=== PATIENT | male | born 1955 | race Asian ===

== ENCOUNTER 2018-10-25 12:14 | Emergency (ER) | payer MEDICAID ==
[~2018-10-25] VITALS: Ht 154.9 cm; Wt 59.0 kg
[2018-10-25 13:16] VITALS: BP 126/66
[2018-10-25] MEDS ORDERED: ORPH100T PO (13:24)
[2018-10-25] MEDS ORDERED: IBUP-1007 PO (13:24)
--- NOTE | 2018-10-25 13:25 | PHYS DOC ---
Adult General Chief Complaint Chief Complaint: LOWER BACK PAIN OR INJURY HPI HPI Patient is a 63 year old male who presents with the pill yesterday and felt a pull in his back. He's had mid back pain that is nonradiating and stiffness just today. Rates his pain a 6 out of 10 but with movement is a 10 out of 10. Review of Systems Review of Systems Constitutional: Denies fever or chills [] Eyes: Denies change in visual acuity, redness, or eye pain [] HENT: Denies nasal congestion or sore throat [] Respiratory: Denies cough or shortness of breath [] Cardiovascular: No additional information not addressed in HPI [] GI: Denies abdominal pain, nausea, vomiting, bloody stools or diarrhea [] : Denies dysuria or hematuria [] Musculoskeletal: Denies back pain or joint pain [] Integument: Denies rash or skin lesions [] Neurologic: Denies headache, focal weakness or sensory changes [] Endocrine: Denies polyuria or polydipsia [] All other systems were reviewed and found to be within normal limits, except as documented in this note. Current Medications Current Medications Current Medications Medications (Trade) Dose Ordered Sig/Irais Start Time Stop Time Status Last Admin Dose Admin Cyclobenzaprine HCl (Flexeril) 10 mg 1X ONCE 10/25/18 13:45 10/25/18 13:46 DC Ketorolac Tromethamine (Toradol Im) 60 mg 1X ONCE 10/25/18 13:45 10/25/18 13:46 DC 10/25/18 13:42 60 MG Allergies Allergies Allergies Coded Allergies Type Severity Reaction Last Updated Verified No Known Drug Allergies 10/25/18 No Physical Exam Physical Exam Constitutional: Well developed, well nourished, no acute distress, non-toxic appearance. [] HENT: Normocephalic, atraumatic, bilateral external ears normal, oropharynx moist, no oral exudates, nose normal. [] Eyes: PERRLA, EOMI, conjunctiva normal, no discharge. [] Neck: Normal range of motion, no tenderness, supple, no stridor. [] Cardiovascular:Heart rate regular rhythm, no murmur [] Lungs & Thorax: Bilateral breath sounds clear to auscultation [] Abdomen: Bowel sounds normal, soft, no tenderness, no masses, no pulsatile masses. [] Skin: Warm, dry, no erythema, no rash. [] Back: No tenderness, no CVA tenderness. [] Extremities: No tenderness, no cyanosis, no clubbing, ROM intact, no edema. [] Neurologic: Alert and oriented X 3, normal motor function, normal sensory function, no focal deficits noted. [] Psychologic: Affect normal, judgement normal, mood normal. [] Current Patient Data Vital Signs Vital Signs Date Time Temp Pulse Resp B/P (MAP) Pulse Ox O2 Delivery O2 Flow Rate FiO2 10/25/18 13:16 97.9 66 16 126/66 (86) 98 Room Air 97.9 EKG EKG [] Radiology/Procedures Radiology/Procedures [] Course & Med Decision Making Course & Med Decision Making Patient is a 63 year old male who presents with the pill yesterday and felt a pull in his back. He's had mid back pain that is nonradiating and stiffness just today. Rates his pain a 6 out of 10 but with movement is a 10 out of 10. She states she took pain medication yesterday. He is given a muscle relaxer and Toradol in the ED. I will write him a prescription for muscle relaxer and ibuprofen to go home. He is follow-up with his primary care provider. There is no tenderness to palpation or bony tenderness. There is no focal weaknesses. Patient is able to get up from the wheelchair to the chair. Staff Physician Addendum: I was working in the ER during the course of this patient's visit. I was available for consultation as needed, but I was not directly involved in the care of this patient. Dragon Disclaimer Dragon Disclaimer This electronic medical record was generated, in whole or in part, using a voice recognition dictation system. Departure Departure Impression: Primary Impression: Low back strain Disposition: HOME, SELF-CARE Condition: STABLE Patient Instructions: Low Back Strain with [facility] Additional Instructions: follow up with your primary care provider. take medications as prescribed. Scripts Ibuprofen (IBUPROFEN) 600 Mg Tablet 600 MG PO PRN Q6HRS PRN for INFLAMMATION, #20 TAB Prov: LACI BUCIO ACCOUNTING CLERK 10/25/18 Orphenadrine Citrate (ORPHENADRINE CITRATE) 100 Mg Tablet.er 1 TAB PO BID, #10 TAB Prov: LACI BUCIO ACCOUNTING CLERK 10/25/18 Problem Qualifiers Primary Impression: Low back strain Encounter type: initial encounter Qualified Codes: S39.012A - Strain of muscle, fascia and tendon of lower back, initial encounter LACI BUCIO APRN Oct 25, 2018 13:24 BIJAL PITTS MD Oct 25, 2018 15:25
[2018-10-25] MEDS ORDERED: KETOROLAC 60 MG/2 ML VIAL. IM ONE (13:45)
[2018-10-25] MEDS ORDERED: CYCLOBENZAPRINE 10 MG TABLET. PO ONE (13:45)
== END 2018-10-25 13:46 | disposition home or self-care (01) ==
LOC: ER 12:14
DX: S39.012A Strain of muscle, fascia and tendon of lower back, initial encounter (principal); X50.0XXA Overexertion from strenuous movement or load, initial encounter; Y93.89 Activity, other specified; Y92.89 Other specified places as the place of occurrence of the external cause; Y99.8 Other external cause status
CPT/HCPCS: 96372; 99283; J1885